=== PATIENT | male | born 1940 | race Hispanic/Latino ===

== ENCOUNTER → 2020-08-03 | Outpatient (CLI) | payer OTHER | END | disposition home or self-care (01) | LOC: RAH 07:54 | PROVIDERS: ATTEND Internal Medicine Critical Care Medicine | DX: I10 Essential (primary) hypertension (principal) | CPT/HCPCS: 76770; 93975 ==

== ENCOUNTER → 2021-05-24 | Outpatient (CLI) | payer OTHER | END | disposition home or self-care (01) | LOC: RAH 07:30 | PROVIDERS: ATTEND Internal Medicine Critical Care Medicine | DX: K57.30 Diverticulosis of large intestine without perforation or abscess without bleeding (principal); K59.09 Other constipation; I70.0 Atherosclerosis of aorta | CPT/HCPCS: 74176 ==

== ENCOUNTER → 2021-08-03 | Outpatient (CLI) | payer OTHER | END | disposition home or self-care (01) | LOC: RAH 13:08 | PROVIDERS: ATTEND Internal Medicine Critical Care Medicine | DX: I70.203 Unspecified atherosclerosis of native arteries of extremities, bilateral legs (principal) | CPT/HCPCS: 93925 ==

== ENCOUNTER → 2021-11-02 | Outpatient (CLI) | payer OTHER ==
[~2021-11-02] MED LIST: IOHEXOL-350 75 ML VIAL IV ONE
== END | disposition home or self-care (01) ==
LOC: RAH 08:40
PROVIDERS: ATTEND Internal Medicine Critical Care Medicine
DX: K57.30 Diverticulosis of large intestine without perforation or abscess without bleeding (principal); M47.817 Spondylosis without myelopathy or radiculopathy, lumbosacral region; M48.07 Spinal stenosis, lumbosacral region; E11.9 Type 2 diabetes mellitus without complications
CPT/HCPCS: 74177; Q9967

== ENCOUNTER → 2023-03-04 | Outpatient (CLI) | payer OTHER | END | disposition home or self-care (01) | LOC: OIH 08:57 | PROVIDERS: ATTEND Internal Medicine Critical Care Medicine | DX: Z13.6 Encounter for screening for cardiovascular disorders (principal) | CPT/HCPCS: 75571 ==